=== PATIENT | female | born 1960 | race Two or more races ===

== ENCOUNTER 2018-01-26 07:26 | Emergency (ER) | payer OTHER ==
[~2018-01-26] VITALS: Ht 157.5 cm; Wt 72.6 kg
[2018-01-26] MEDS ORDERED: TUSSI PRES-B L120 M1 PO (11:12)
== END 2018-01-26 11:43 | disposition home or self-care (01) ==
LOC: ER 07:26
DX: R05 Cough (principal); Z59.0 Homelessness